=== PATIENT | female | born 1960 | race Hispanic/Latino ===

== ENCOUNTER 2022-06-05 09:06 | Observation (INO) | payer BC ==
[~2022-06-05] VITALS: Ht 152.4 cm; Wt 88.9 kg
[2022-06-05 13:40] LABS: BASOPHILS % (AUTO) 0.8 % (0.0-5.0); EOSINOPHILS % (AUTO) 1.1 % (0.0-8.0); HEMATOCRIT 42.3 % (36-48); LYMPHOCYTES % (AUTO) 29.2 % (21.0-51.0); MEAN CORPUSCULAR HEMOGLOBIN 30.8 pg (27.0-33.0); MEAN CORPUSCULAR VOLUME 90.4 fL (79-99); MONOCYTES % (AUTO) 6.5 % (3.0-13.0); PLATELET COUNT (AUTO) 412 K/uL (130-400); RED BLOOD CELL COUNT(AUTO) 4.68 MIL/uL (4.00-5.50); WHITE BLOOD COUNT (AUTO) 13.4 K/uL (4.8-10.8)
[2022-06-05 14:00] LABS: CREATININE 0.7 mg/dL (0.5-1.5); POTASSIUM 4.4 mmol/L (3.5-5.1)
[2022-06-05 14:05] LABS: ALBUMIN 3.7 g/dL (3.5-5.0); TOTAL PROTEIN, SERUM 7.8 g/dL (6.0-8.3)
[2022-06-05] MEDS: CLINDAMYCIN IVPB 600MG/50ML 50 ML IV SCH ×2 (14:19→22:02)
[2022-06-05 14:39] LABS: APPEARANCE,URINE CLEAR (CLEAR); BILIRUBIN,URINE NEGATIVE (NEGATIVE); COLOR,URINE LIGHT-YELLOW (YELLOW); GLUCOSE, URINE (UA) NEGATIVE (NEGATIVE); KETONES,URINE NEGATIVE (NEGATIVE); LEUKOCYTE ESTERASE ,URINE NEGATIVE Leu/uL (NEGATIVE); NITRATE,URINE NEGATIVE (NEGATIVE); OCCULT BLOOD,URINE NEGATIVE (NEGATIVE); PH,URINE 5.5 (5.0-8.0); PROTEIN,URINE NEGATIVE (NEGATIVE); UROBILINOGEN,URINE 0.2 mg/dL (0.2-1.0)
[2022-06-05 14:47] LABS: BACTERIA,URINE FEW /HPF (None Seen); MUCUS,URINE RARE LPF (None Seen); RBC,URINE 0-1 /HPF (0-1); SQUAMOUS EPITHELIAL CELL,UR MOD /HPF (0-2); WBC,URINE 0-1 /HPF (0-1)
[2022-06-05] MEDS: INSULIN HUMULIN R 100 UNIT/ML 3ML SQ SCH ×2 (16:30→21:14)
[2022-06-05] MEDS: ZOSYN 3.375GM +NS 50ML IV SCH ×2 (16:41→23:37)
[2022-06-05] MEDS ORDERED: AMLO-257 PO (17:00)
[2022-06-05] MEDS: LINEZOLID 600 MG/ISO-OSM 300 ML IV SCH (18:04)
[2022-06-05 19:15] VITALS: BP 131/65
[2022-06-05 20:00] VITALS: BP 131/74
[2022-06-05] MEDS ORDERED: METF-444 PO (22:38)
[2022-06-06] VITALS (29 sets, daily range): BP systolic 89–125; BP diastolic 41–69
[2022-06-06] MEDS: LINEZOLID 600 MG/ISO-OSM 300 ML IV SCH ×2 (04:06→15:33)
[2022-06-06 04:20] LABS: BASOPHILS % (AUTO) 0.8 % (0.0-5.0); EOSINOPHILS % (AUTO) 1.6 % (0.0-8.0); HEMATOCRIT 38.1 % (36-48); LYMPHOCYTES % (AUTO) 28.4 % (21.0-51.0); MEAN CORPUSCULAR HEMOGLOBIN 30.4 pg (27.0-33.0); MEAN CORPUSCULAR HGB CONC 33.9 g/dL (32.0-36.0); MEAN CORPUSCULAR VOLUME 89.9 fL (79-99); MONOCYTES % (AUTO) 10.2 % (3.0-13.0); NEUTROPHILS % (AUTO) 58.5 % (40.0-77.0); PLATELET COUNT (AUTO) 364 K/uL (130-400); RED BLOOD CELL COUNT(AUTO) 4.24 MIL/uL (4.00-5.50); WHITE BLOOD COUNT (AUTO) 13.3 K/uL (4.8-10.8)
[2022-06-06 04:31] LABS: CREATININE 0.9 mg/dL (0.5-1.5); POTASSIUM 3.5 mmol/L (3.5-5.1)
[2022-06-06] MEDS: INSULIN HUMULIN R 100 UNIT/ML 3ML SQ SCH ×4 (05:27→20:54)
[2022-06-06] MEDS: CLINDAMYCIN IVPB 600MG/50ML 50 ML IV SCH ×3 (05:36→21:08)
[2022-06-06] MEDS: ZOSYN 3.375GM +NS 50ML IV SCH ×3 (06:41→23:05)
[2022-06-06] MEDS: AMLODIPINE 5 MG TAB PO SCH (09:14)
[2022-06-06] MEDS ORDERED: PHARMACY COMMUNICATION MISC SCH (09:30)
[2022-06-06] MEDS ORDERED: 0.9%NACL 1000ML 1,000 ML IV ONE (10:02)
[2022-06-06] MEDS ORDERED: ROCURONIUM 10MG/1ML SYR 10 MG/ML ML ONE (11:43)
[2022-06-06] MEDS ORDERED: MIDAZOLAM HCL 1 MG/ML 2ML VIAL ONE (11:43)
[2022-06-06] MEDS ORDERED: PROPOFOL 10 MG/ML 20ML VIAL IV ONE (11:43)
[2022-06-06] MEDS ORDERED: ONDANSETRON 4MG INJ ONE ×2 (11:43→12:48)
[2022-06-06] MEDS ORDERED: FENTANYL CITRATE PF 50 MCG/1 ML 2ML VIAL ONE ×2 (11:44→12:06)
[2022-06-06] MEDS ORDERED: GLYCOPYRROLATE 1 MG/5 ML SYRINGE ONE (12:09)
[2022-06-06] MEDS ORDERED: NEOSTIGMINE 5MG/5ML SYR IV ONE (12:10)
[2022-06-06] MEDS ORDERED: MEPERIDINE-PF 25 MG/ML SYG ONE ×2 (12:49→13:06)
[2022-06-06] MEDS ORDERED: KETOROLAC 30MG VIAL (30MG/ML) ONE (12:49)
[2022-06-06] MEDS ORDERED: MORPHINE 4 MG SYG IVP PRN (14:30)
[2022-06-06] MEDS ORDERED: ACETAMINOPHEN 325 MG TAB PO PRN (22:00)
[2022-06-06] MEDS ORDERED: ACETAMINOPHEN 325 MG TAB ONE (22:00)
[2022-06-07 00:12] VITALS: BP 127/87
[2022-06-07] MEDS: LINEZOLID 600 MG/ISO-OSM 300 ML IV SCH (03:43)
[2022-06-07 04:31] VITALS: BP 125/62
[2022-06-07 04:43] LABS: BASOPHILS % (AUTO) 0.7 % (0.0-5.0); EOSINOPHILS % (AUTO) 1.9 % (0.0-8.0); HEMATOCRIT 36.8 % (36-48); LYMPHOCYTES % (AUTO) 34.4 % (21.0-51.0); MEAN CORPUSCULAR HEMOGLOBIN 30.6 pg (27.0-33.0); MEAN CORPUSCULAR HGB CONC 33.2 g/dL (32.0-36.0); MEAN CORPUSCULAR VOLUME 92.2 fL (79-99); MONOCYTES % (AUTO) 7.3 % (3.0-13.0); NEUTROPHILS % (AUTO) 55.4 % (40.0-77.0); PLATELET COUNT (AUTO) 341 K/uL (130-400); RED BLOOD CELL COUNT(AUTO) 3.99 MIL/uL (4.00-5.50); RED CELL DISTRIBUTION WIDTH 12.1 % (11.0-15.5)
[2022-06-07 05:00] LABS: CREATININE 0.8 mg/dL (0.5-1.5); POTASSIUM 3.6 mmol/L (3.5-5.1)
[2022-06-07] MEDS: INSULIN HUMULIN R 100 UNIT/ML 3ML SQ SCH ×2 (05:24→11:56)
[2022-06-07] MEDS: CLINDAMYCIN IVPB 600MG/50ML 50 ML IV SCH (05:45)
[2022-06-07] MEDS: ZOSYN 3.375GM +NS 50ML IV SCH (05:49)
[2022-06-07 08:00] VITALS: BP 147/75
[2022-06-07] MEDS: AMLODIPINE 5 MG TAB PO SCH (08:57)
[2022-06-07 12:00] VITALS: BP 128/65
== END 2022-06-07 14:38 | disposition home or self-care (01) ==
LOC: EDH 09:06 → EDHIP 15:23 → 4CH 18:33
PROVIDERS: ADMIT Internal Medicine; ATTEND Internal Medicine
DX: L02.31 Cutaneous abscess of buttock (principal); Z20.822 Contact with and (suspected) exposure to COVID-19; E11.65 Type 2 diabetes mellitus with hyperglycemia; I10 Essential (primary) hypertension; E78.5 Hyperlipidemia, unspecified; E66.01 Morbid (severe) obesity due to excess calories; L03.317 Cellulitis of buttock; Z79.899 Other long term (current) drug therapy
CPT/HCPCS: 96372 ×3; 96365; 96366 ×3; 96367; 99284; 82947; 84484; 80053; 85025 ×3; 87040 ×2; 87070; 87076 ×2; 82948 ×10; 83605; 86140; 81001; 36415 ×3; 76604; 10061; 96368; 80048 ×2; 87635; G0378 ×47; J2543 ×6; J2020 ×4; J3490 ×7; J1815 ×3; J7030 ×2; J3010 ×2; J2710; J2250; J2704; J2405 ×2; J1885; J2175 ×2; A6446; A4223; A4222; A4600